=== PATIENT | male | born 1955 | race Caucasian/White ===

== ENCOUNTER 2024-12-27 06:22 | Day surgery (SDC) | payer MEDICARE, SELFPAY | END 2024-12-27 10:49 | disposition home or self-care (01) | LOC: GI 06:22 | PROVIDERS: ATTENDING PHYSICIAN Specialist | DX: R12 Heartburn (principal); K22.89 Other specified disease of esophagus; K22.70 Barrett's esophagus without dysplasia; Q39.8 Other congenital malformations of esophagus | CPT/HCPCS: 43239; 88305 ==